=== PATIENT | female | born 1980 | race Caucasian/White ===

== ENCOUNTER 2017-01-15 02:30 | Inpatient (IN) | payer MEDICAID ==
[~2017-01-15] VITALS: Ht 154.9 cm; Wt 59.4 kg
[2017-01-15] MEDS ORDERED: OXYTOCIN 30 UNITS/LACT RINGERS 500 ML IV ONE (02:43)
[2017-01-15] MEDS ORDERED: RINGERS SOLUTION,LACTATED 1,000 ML IV SCH (02:43)
[2017-01-15] MEDS ORDERED: RINGERS SOLUTION,LACTATED 1,000 ML IV PRN (02:43)
[2017-01-15] MEDS ORDERED: METOCLOPRAMIDE HCL 5 MG/ML 2 ML VIAL IVP PRN (02:45)
[2017-01-15] MEDS ORDERED: CITRIC ACID/SODIUM CITRATE 30 ML SOLUTION UDCUP PO PRN (02:45)
[2017-01-15] MEDS ORDERED: FentaNYL CITRATE-PF 100 MCG/2 ML VIAL IVP PRN (02:45)
[2017-01-15] MEDS ORDERED: LIDOCAINE HCL/PF 1% 30 ML VIAL ONE (03:16)
[2017-01-15] MEDS ORDERED: GLYCERIN/WITCH HAZEL LEAF 40 PADS JAR TP PRN (03:30)
[2017-01-15] MEDS ORDERED: BENZOCAINE 20%/MENTHOL 56 GM SPRAY CANISTER TP PRN (03:30)
[2017-01-15] MEDS ORDERED: MEASLES/MUMPS/RUBELLA VACCINE, LIVE 0.5 ML/VIAL SQ ONE (03:30)
[2017-01-15] MEDS ORDERED: ACETAMINOPHEN/CODEINE 300-30 MG TABLET PO PRN (03:30)
[2017-01-15] MEDS ORDERED: LANOLIN 7 GM OINTMENT TP PRN (03:30)
[2017-01-15] MEDS ORDERED: PREN1TAB80 PO (03:39)
[2017-01-15] MEDS ORDERED: OXYTOCIN 20 UNITS in RINGERS SOLUTION,LACTATED 1,000 ML IV SCH (03:45)
[2017-01-15] MEDS ORDERED: LIDOCAINE HCL/PF 1% 30 ML VIAL INJ PRN (03:45)
[2017-01-15 04:00] VITALS: BP 113/65
[2017-01-15 04:53] LABS: BASOPHILS # (AUTO) 0.01 K/uL (0.00-0.20); BASOPHILS % (AUTO) 0.1 % (0.0-2.0); EOSINOPHILS # (AUTO) 0.01 K/uL (0.00-0.70); EOSINOPHILS % (AUTO) 0.04 % (1.0-6.0); LYMPHOCYTES # (AUTO) 0.8 K/uL (1.0-4.8); LYMPHOCYTES % (AUTO) 3.2 % (22.0-44.0); MEAN CORPUSCULAR HEMOGLOBIN 30.5 pg (26.0-34.0); MEAN CORPUSCULAR HGB CONC 33.4 G/dL (31.0-37.0); MEAN CORPUSCULAR VOLUME 91 fL (80-100); MONOCYTES # (AUTO) 0.7 K/uL (0.1-1.0); MONOCYTES % (AUTO) 2.8 % (2.0-9.0); RED BLOOD CELL COUNT(AUTO) 3.93 MIL/uL (4.00-5.20); RED CELL DISTRIBUTION WIDTH 14.6 % (11.5-14.5); WHITE BLOOD COUNT (AUTO) 24.5 K/uL (4.5-11.0)
[2017-01-15 04:56] LABS: NEUTROPHILS % (AUTO) 93.9 % (40.0-70.0)
[2017-01-15 05:48] LABS: RUBELLA SCREEN (IGG) IMMUNE (IMMUNE)
[2017-01-15] MEDS: IBUPROFEN 600 MG TABLET PO PRN (05:55)
[2017-01-15 07:38] LABS: APPEARANCE,URINE TURBID (CLEAR); GLUCOSE, URINE (UA) 100 mg/dL (NEGATIVE); KETONES,URINE 40 mg/dL (NEGATIVE); LEUKOCYTE ESTERASE ,URINE LARGE (NEGATIVE); OCCULT BLOOD,URINE LARGE (NEGATIVE); PROTEIN,URINE SEE CONFIRM (NEGATIVE)
[2017-01-15 07:39] LABS: ADD UA MICROSCOPIC YES
[2017-01-15 07:44] LABS: SULFOSALICYLIC ACID,URINE 4+ (Negative)
[2017-01-15 07:48] LABS: RBC,URINE Full Field /HPF (0-2); SQUAMOUS EPITHELIAL CELL,UR Few /LPF (None Seen)
[2017-01-16] MEDS: IBUPROFEN 600 MG TABLET PO PRN ×2 (00:39→11:01)
[2017-01-16] MEDS: MAGNESIUM HYDROXIDE SUSPENSION 30 ML UDCUP PO PRN ×2 (00:40→11:00)
[2017-01-16] MEDS: SENNA/DOCUSATE SODIUM 187-50 MG TABLET PO PRN ×2 (00:40→11:01)
[2017-01-16 07:18] LABS: BASOPHILS % (AUTO) 0.2 % (0.0-2.0); EOSINOPHILS % (AUTO) 0.8 % (1.0-6.0); HEMOGLOBIN 11.1 g/dL (12.0-16.0); LYMPHOCYTES % (AUTO) 18.1 % (22.0-44.0); MEAN CORPUSCULAR HEMOGLOBIN 29.3 pg (26.0-34.0); MEAN CORPUSCULAR HGB CONC 31.7 G/dL (31.0-37.0); MEAN CORPUSCULAR VOLUME 92 fL (80-100); MONOCYTES % (AUTO) 6.3 % (2.0-9.0); NEUTROPHILS # (AUTO) 12.2 K/uL (1.8-7.7); NEUTROPHILS % (AUTO) 74.6 % (40.0-70.0); RED BLOOD CELL COUNT(AUTO) 3.79 MIL/uL (4.00-5.20); WHITE BLOOD COUNT (AUTO) 16.3 K/uL (4.5-11.0)
[2017-01-16] MEDS ORDERED: IBUP-2070 PO (10:13)
[2017-01-16] MEDS ORDERED: DSS100 PO (10:16)
[2017-01-23 03:27] LABS: URIN CARBOXY-THC GC/MS CONFIRM 78 ng/mL (Cutoff=10)
== END 2017-01-16 11:10 | disposition home or self-care (01) | DRG 560 ==
LOC: 4S 02:30
PROVIDERS: ADMIT Obstetrics & Gynecology; ATTEND Obstetrics & Gynecology
PROC: 10E0XZZ Delivery of Products of Conception, External Approach (ICD-10-PCS; principal; 2017-01-15)
DX: O77.0 Labor and delivery complicated by meconium in amniotic fluid (principal); O09.523 Supervision of elderly multigravida, third trimester; Z37.0 Single live birth; Z3A.38 38 weeks gestation of pregnancy
CPT/HCPCS: 80307; 80349; 86592; 86762; 86900; 87086; 87340; J2590; J3010; J3490; J7120